=== PATIENT | female | born 1985 | race Caucasian/White ===

== ENCOUNTER 2020-02-08 15:40 | Emergency (ER) | payer SELFPAY ==
--- NOTE | 2020-02-08 16:55 | ER Document Report ---
ED Medical Screen (RME) - General Chief Complaint: Insect Bite Stated Complaint: SPIDER BITE Time Seen by Provider: 02/08/20 16:51 Primary Care Provider: LATRICE PERRY [Primary Care Provider] - Follow up as needed Mode of Arrival: Wheelchair Information source: Patient Notes: 34-year-old female presented to ED for an infected insect bite to the left ankle. She states she was bit by a spider maybe a week ago. It is very swollen ankle with a black bull's-eye to the front of the left ankle. I will order labs and x-ray of the ankle and she will follow-up with a another provider. Patient states she does smoke half pack a day she denies use of alcohol she has smoked marijuana in the past and she does go to the methadone clinic. I have greeted and performed a rapid initial assessment of this patient. A comprehensive ED assessment and evaluation of the patient, analysis of test results and completion of medical decision making process will be conducted by a n additional ED providers. Physical Exam - Vital signs Vitals: Temp Pulse Resp BP Pulse Ox 98.6 F 75 18 137/85 H 100 02/08/20 15:48 02/08/20 15:48 02/08/20 15:48 02/08/20 15:48 02/08/20 15:48 Course - Vital Signs Vital signs: Temp Pulse Resp BP Pulse Ox 98.6 F 75 18 137/85 H 100 02/08/20 15:48 02/08/20 15:48 02/08/20 15:48 02/08/20 15:48 02/08/20 15:48 Doctor's Discharge - Discharge Referrals: LATRICE PERRY [Primary Care Provider] - Follow up as needed
[2020-02-08] MEDS ORDERED: NORMAL SALINE 1000 ML 1,000 ML IV ONE (16:57)
[2020-02-08] MEDS ORDERED: KETOROLAC TROMETHAMINE INJ/PF 30 MG/1 ML SDV IV ONE (16:57)
[2020-02-08 17:25] LABS: ABSOLUTE EOSINOPHILS # (AUTO) 0.2 10^3/uL (0.0-0.6); ABSOLUTE LYMPHOCYTES (AUTO) 1.7 10^3/uL (0.5-4.7); ABSOLUTE MONOCYTES (AUTO) 0.3 10^3/uL (0.1-1.4); ABSOLUTE NEUT (AUTO) 2.6 10^3/uL (1.7-8.2); BASOPHILS % (AUTO) 0.5 % (0-2); HEMATOCRIT 33.8 % (36.0-47.0); LYMPHOCYTES % (AUTO) 34.6 % (13-45); MEAN CORPUSCULAR HEMOGLOBIN 26.8 pg (27.0-33.4); MEAN CORPUSCULAR HGB CONC 32.5 g/dL (32.0-36.0); MEAN CORPUSCULAR VOLUME 82 fl (80-97); MONOCYTES % (AUTO) 6.3 % (3-13); PLATELET COUNT 365 10^3/uL (150-450); SEGMENTED NEUTROPHILS % (AUTO) 53.6 % (42-78); TOTAL CELLS COUNTED % (AUTO) 100 %; WHITE BLOOD COUNT 4.9 10^3/uL (4.0-10.5)
--- NOTE | 2020-02-08 17:34 | RADIOLOGY REPORT (SQ) ---
EXAM DESCRIPTION: ANKLE LEFT COMPLETE; FOOT LEFT COMPLETE IMAGES COMPLETED DATE/TIME: 02/08/2020 5:22 pm REASON FOR STUDY: Infected wound on the front of the left ankle COMPARISON: None. EXAM PARAMETERS: NUMBER OF VIEWS: Six views. TECHNIQUE: AP, lateral and oblique radiographic images acquired of the left foot and ankle. LIMITATIONS: None. FINDINGS: MINERALIZATION: Normal. BONES: No acute fracture or dislocation. No worrisome bone lesions. JOINTS: No effusion. SOFT TISSUES: Mild anterior-dorsal soft tissue swelling. No radiopaque foreign body. OTHER: No other significant finding. IMPRESSION: NO FRACTURE.Mild anterior-dorsal soft tissue swelling. No radiopaque foreign body. TECHNICAL DOCUMENTATION: JOB ID: [id number] [place]-72 2010 [employer]- All Rights Reserved Reading location - IP/workstation name: [email or web address]
--- NOTE | 2020-02-08 17:34 | RADIOLOGY REPORT (SQ) ---
EXAM DESCRIPTION: ANKLE LEFT COMPLETE; FOOT LEFT COMPLETE IMAGES COMPLETED DATE/TIME: 02/08/2020 5:22 pm REASON FOR STUDY: Infected wound on the front of the left ankle COMPARISON: None. EXAM PARAMETERS: NUMBER OF VIEWS: Six views. TECHNIQUE: AP, lateral and oblique radiographic images acquired of the left foot and ankle. LIMITATIONS: None. FINDINGS: MINERALIZATION: Normal. BONES: No acute fracture or dislocation. No worrisome bone lesions. JOINTS: No effusion. SOFT TISSUES: Mild anterior-dorsal soft tissue swelling. No radiopaque foreign body. OTHER: No other significant finding. IMPRESSION: NO FRACTURE.Mild anterior-dorsal soft tissue swelling. No radiopaque foreign body. TECHNICAL DOCUMENTATION: JOB ID: [id number] [place]-72 2010 [employer]- All Rights Reserved Reading location - IP/workstation name: [email or web address]
[2020-02-08 17:41] LABS: ALBUMIN 4.8 g/dL (3.5-5.0); ALKALINE PHOSPHATASE 93 U/L (38-126); ANION GAP 8 (5-19); ASPARTATE AMINO TRANSFERASE 22 U/L (14-36); BILIRUBIN,TOTAL 0.2 mg/dL (0.2-1.3); BLOOD UREA NITROGEN 16 mg/dL (7-20); CALCIUM 9.9 mg/dL (8.4-10.2); CARBON DIOXIDE 31 mmol/L (22-30); CHLORIDE 101 mmol/L (98-107); POTASSIUM 4.2 mmol/L (3.6-5.0); TOTAL PROTEIN 8.3 g/dL (6.3-8.2)
[2020-02-08 17:42] LABS: GLUCOSE 68 mg/dL (75-110)
--- NOTE | 2020-02-08 17:46 | ER Document Report ---
ED General - General Chief Complaint: Wound Infection Stated Complaint: SPIDER BITE Time Seen by Provider: 02/08/20 16:51 Primary Care Provider: LATRICE PERRY [Primary Care Provider] - Follow up as needed Mode of Arrival: Wheelchair Information source: Patient Notes: 02/08/20 16:51 - ED Nursing Note by LORRAINETIFFANIEMOY Accshahram Num: [id number] : 1985 Patient Age: 34 pt reports she is not sure how long ago it was but she got bit by a spider. pt has area to the left elbow left lower leg and the left ankle. states it has been over a week. large ulcerated area noted. necrotic tissue noted. reports she does go to the [facility]. gets her methadone there. pt is alert and oriented. resp are even and unlabored. ED Medical Screen (Manjinder notes) - General Chief Complaint: Insect Bite Stated Complaint: SPIDER BITE Time Seen by Provider: 02/08/20 16:51 Primary Care Provider: LATRICE PERRY [Primary Care Provider] - Follow up as needed Mode of Arrival: Wheelchair Information source: Patient Notes: 34-year-old female presented to ED for an infected insect bite to the left ankle. She states she was bit by a spider maybe a week ago. It is very swollen ankle with a black bull's-eye to the front of the left ankle. I will order labs and x-ray of the ankle and she will follow-up with a another provider. Patient states she does smoke half pack a day she denies use of alcohol she has smoked marijuana in the past and she does go to the methadone clinic. my notes 34-year-old female who arrives with chief complaint of 1 week history of a left foot skin lesion which is approximately 2 and half centimeters diameter with some darkened skin. X-rays were negative for osteomyelitis no fractures but were positive for STS. Her CBC and CMP were normal. Patient was crying as is in her room because she is reports she was having left temporal headache. She reports she has had a left elbow lesion similar to the left leg area around a month and a half ago. She used to use IV drugs but has been going to the clinic for 2 years now and denies any exposure to MRSA. Patient does report she has friends who may have such problems. Patient was given a Pepsi because her blood sugar was 69 by fingerstick here in the ER. TRAVEL OUTSIDE OF THE [place] IN LAST 30 DAYS: No - HPI Onset: Last week Onset/Duration: Sudden, Persistent, Worse Quality of pain: Achy Severity: Moderate Pain Level: 3 Associated symptoms: Leg swelling, Weakness Exacerbated by: Movement Relieved by: Denies Similar symptoms previously: Yes Recently seen / treated by doctor: No - Related Data Allergies/Adverse Reactions: No Known Allergies Allergy (Verified 02/08/20 16:53) Home Medications: methadone Past Medical History - General Information source: Patient - Social History Smoking Status: Current Every Day Smoker Cigarette use (# per day): Yes Chew tobacco use (# tins/day): No Smoking Education Provided: Yes Frequency of alcohol use: None Drug Abuse: Marijuana Lives with: Family Family History: Reviewed & Not Pertinent Patient has suicidal ideation: No Patient has homicidal ideation: No Past Surgical History: Reports: Hx Tubal Ligation Physical Exam - Vital signs Vitals: Temp Pulse Resp BP Pulse Ox 98.6 F 75 18 137/85 H 100 02/08/20 15:48 02/08/20 15:48 02/08/20 15:48 02/08/20 15:48 02/08/20 15:48 Course - Vital Signs Vital signs: Temp Pulse Resp BP Pulse Ox 97.9 F 76 14 124/98 H 97 02/08/20 20:21 02/08/20 20:21 02/08/20 20:21 02/08/20 20:21 02/08/20 20:21 - Laboratory Result Diagrams: 02/08/20 17:08 02/08/20 17:08 Laboratory results interpreted by me: 02/08/20 02/08/20 17:08 17:08 Hgb 11.0 L Hct 33.8 L MCH 26.8 L RDW 16.0 H ESR 54 H Carbon Dioxide 31 H Glucose 68 L C-Reactive Protein 21.3 H Total Protein 8.3 H Discharge - Discharge Clinical Impression: Wound infection Spider bite Qualifiers: Encounter type: initial encounter Injury intent: accidental or unintentional Qualified Code(s): T63.301A - Toxic effect of unspecified spider venom, accidental (unintentional), initial encounter Condition: Good Disposition: HOME, SELF-CARE Instructions: Antibiotic Ointment Protection ([facility]), Soap Cleansing ([facility]) Additional Instructions: Follow-up with personal doctor this week and return to ER if symptoms persist or worsen. Take medicines as directed. Encourage fluids avoid sunlight or any irritation to affected skin. Also apply Bactroban to nose nightly for 5 nights. This is to help decrease any staph in her nose. Also apply Bactroban to affected skin lesions. Do this daily after washing with Hibiclens soap daily. Wash gently with lukewarm water and pat dry before applying Bactroban ointment. Prescriptions: Chlorhexidine Gluconate [Antiseptic Skin Cleanser] 5 ml TP DAILY #1 bottle Sulfamethoxazole/Trimethoprim [Bactrim Ds Tablet] 1 tab PO BID #14 tablet Mupirocin [Bactroban 2% Ointment 22 gm] 1 applic TP TID #1 tube Cephalexin Monohydrate [Keflex 500 mg Capsule] 500 mg PO TID 5 Days #30 capsule Referrals: LOCALMD,NO [Primary Care Provider] - Follow up as needed
[2020-02-08 17:48] LABS: C-REACTIVE PROTEIN 21.3 mg/L (<10.0)
[2020-02-08 18:02] LABS: ERYTHROCYTE SEDIMENTATION RATE 54 mm/hr (0-20)
[2020-02-08] MEDS ORDERED: VANCOMYCIN HCL INJ 1000 MG VIAL IV ONE (18:07)
[2020-02-08] MEDS ORDERED: LEVOFLOXACIN 500 MG TABLET PO ONE (18:08)
[2020-02-08 20:22] VITALS: BP 124/98
== END 2020-02-08 20:36 | disposition home or self-care (01) ==
LOC: ER 15:40
DX: T63.301A Toxic effect of unspecified spider venom, accidental (unintentional), initial encounter (principal); M79.89 Other specified soft tissue disorders; M62.81 Muscle weakness (generalized); Z79.899 Other long term (current) drug therapy; F17.210 Nicotine dependence, cigarettes, uncomplicated
CPT/HCPCS: 99285; 96361; 96375; 96365; 96366; 36415; 87040; 87070; 87205; 83690; 85025; 85652; 86140; 87077; 80053; 87186; 73610; 73630; J1885; J7030; J3370